=== PATIENT | male | born 1990 | race Caucasian/White ===

== ENCOUNTER 2018-09-15 14:59 | Emergency (ER) | payer SELFPAY ==
[~2018-09-15] VITALS: Ht 177.8 cm; Wt 98.4 kg
[2018-09-15 15:16] VITALS: Ht 177.8 cm; Wt 98.4 kg
[2018-09-15 17:06] VITALS: BP 111/68
== END 2018-09-15 17:06 | disposition home or self-care (01) ==
LOC: ED 14:59
DX: S86.012A Strain of left Achilles tendon, initial encounter (principal); W03.XXXA Other fall on same level due to collision with another person, initial encounter; Y93.64 Activity, baseball; Y92.320 Baseball field as the place of occurrence of the external cause; Y99.8 Other external cause status

== ENCOUNTER 2019-08-09 17:06 | Emergency (ER) | payer OTHER ==
[~2019-08-09] VITALS: Ht 177.8 cm; Wt 100.2 kg
[2019-08-09 17:12] VITALS: BP 123/72; Ht 177.8 cm; Wt 100.2 kg
== END 2019-08-09 18:30 | disposition home or self-care (01) ==
LOC: ED 17:06
DX: M25.521 Pain in right elbow (principal); Z98.890 Other specified postprocedural states